=== PATIENT | male | born 2000 | race Caucasian/White ===

== ENCOUNTER 2023-11-05 17:51 | Emergency (ER) | payer MEDICAID ==
[~2023-11-05] VITALS: Ht 177.8 cm; Wt 97.9 kg
[2023-11-05] MEDS ORDERED: EAR DROPS15 ML OTIC (19:26)
[2023-11-05 19:32] VITALS: BP 142/70
== END 2023-11-05 19:33 | disposition home or self-care (01) ==
LOC: ED 17:51
DX: H61.21 Impacted cerumen, right ear (principal); Z88.8 Allergy status to other drugs, medicaments and biological substances
CPT/HCPCS: 69209; 99282-25

== ENCOUNTER 2024-02-23 15:37 | Emergency (ER) | payer SELFPAY ==
[~2024-02-23] VITALS: Ht 177.8 cm; Wt 95.0 kg
[~2024-02-23 15:37] MED LIST: EAR DROPS15 ML OTIC
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
[2024-02-23] MEDS ORDERED: ondansetron HCL 4 MG/2 ML VIAL IV ONE (17:45)
[2024-02-23] MEDS ORDERED: SODIUM CHLORIDE 0.9% 1,000 ML IV ONE (18:00)
[2024-02-23] MEDS ORDERED: KETOROLAC TROMETHAMINE 30 MG/ML VIAL IV ONE (18:45)
[2024-02-23] MEDS ORDERED: DEXAMETHASONE SOD PHOS 10 MG/ML VIAL IV ONE (18:45)
[2024-02-23] MEDS ORDERED: ONDANSETRON ODT8 MG PO (19:27)
[2024-02-23 19:41] VITALS: BP 111/60
== END 2024-02-23 20:21 | disposition home or self-care (01) ==
LOC: ED 15:37
DX: G43.909 Migraine, unspecified, not intractable, without status migrainosus (principal); Z88.8 Allergy status to other drugs, medicaments and biological substances
CPT/HCPCS: 96361; 96374; 96375; 99283-25; J1100; J1885; J2405; J7030